=== PATIENT | female | born 1995 | race Caucasian/White ===

== ENCOUNTER 2016-11-24 00:17 | Emergency (ER) | payer BC ==
--- NOTE | 2016-11-24 01:19 | PDOC ---
History of Present Illness - General Stated Complaint: RASH Time Seen by Provider: 11/24/16 01:19 - History of Present Illness Initial Comments: 21 year old previously healthy female presenting with pruritus and erythema of the inner thighs, axilla, flexor arm and wrist surfaces over the past few hours. She noticed a pruritic and erythematous rash on her inner thighs after removing her clothes prior to a shower. After the shower she noticed that the rash was spreading further distal down her legs and lazo to appear on her wrists and flexor surface of her arms bilaterally. She denies any respiratory symptoms. She denies known allergies, insect bite/ exposure, plant exposure, profuse sweating, hygeine issues, new detergent, new clothing, chemical exposure , or animal contact. 11/24/16 01:58 Past History - Past Medical History Allergies/Adverse Reactions: Allergies Allergy/AdvReac Type Severity Reaction Status Date / Time No Known Allergies Allergy Verified 11/24/16 01:25 Home Medications: Ambulatory Orders No Home Medications 0 dose .ROUTE UTDICT 08/03/13 Hydrocortisone 1% Cream [Hytone 1% Cream -] 1 applic TP DAILY PRN #1 tube - Reproductive History Cervical CA: No Dysfunctional Uterine Bleeding: No Ectopic : No Endometrial CA: No Polycystic Ovaries: No Therapeutic (s) & number: No Tubal Ligation: No - Immunization History Immunization Up to Date: Yes - Suicide/Smoking/Psychosocial Hx Smoking History: Never smoked Hx Alcohol Use: No Drug/Substance Use Hx: No Substance Use Type: None Review of Systems - Review of Systems Constitutional: No: Chills, Fever, Loss of Appetite HEENTM: No: Blurred Vision, Tearing Respiratory: No: Cough, Shortness of Breath, Stridor, Wheezing Cardiac (ROS): No: Chest Pain ABD/GI: No: Diarrhea, Nausea, Vomiting Integumentary: Yes: Change in Color, Erythema, Lesions, Pruritus, Rash. No: Bruising Neurological: No: Headache, Numbness, Paresthesia *Physical Exam - Physical Exam General Appearance: Yes: Nourished, Appropriately Dressed. No: Apparent Distress HEENT: positive: EOMI, YASMIN, Normal ENT Inspection, Normal Voice Neck: positive: Trachea midline, Normal Thyroid, Supple. negative: Tender, Rigid Respiratory/Chest: positive: Lungs Clear, Normal Breath Sounds. negative: Chest Tender, Respiratory Distress Cardiovascular: positive: Regular Rhythm, Regular Rate, S1, S2. negative: Edema Gastrointestinal/Abdominal: positive: Normal Bowel Sounds, Flat, Soft. negative : Tender Musculoskeletal: positive: Normal Inspection Extremity: positive: Normal Range of Motion. negative: Normal Inspection ( Confluent erythematous macular rash from crease of thigh medially to the mif thigh bilaterally. Similar rash on wrists and flexor surfaces of her forearm.) Integumentary: positive: Dry, Warm, Erythema, Rash, Swelling (Per above). negative: Normal Color Neurologic: positive: Fully Oriented, Alert, Normal Mood/Affect, Motor Strength 5/5 Medical Decision Making - Medical Decision Making 21 year old female with rash concerning for contact dermatitis. Advised patient on care for rash. Symptoms relieved after 25 PO Benadryl and topical hydrocortisone. Will send home with instructions for Benadryl use and prescription for topical hydrocortisone. 11/24/16 02:07 *DC/Admit/Observation/Transfer Diagnosis at time of Disposition: Contact dermatitis - Discharge Dispostion Disposition: HOME Condition at time of disposition: Improved Admit: No - Prescriptions Prescriptions: Hydrocortisone 1% Cream [Hytone 1% Cream -] 1 applic TP DAILY PRN #1 tube PRN Reason: Itching
[2016-11-24] MEDS ORDERED: diphenhydrAMINE HCL 25 MG CAPSULE (FP) PO ONE ×2 (01:39→01:45)
[2016-11-24] MEDS ORDERED: HYDROCORTISONE 1% TOPICAL OINT 30 GM TUBE TP ONE (01:41)
[2016-11-24 01:49] VITALS: BP 98/58; PULSE 82; TEMP 97.8; BMI 23.7
--- NOTE | 2016-11-24 01:54 | PDOC ---
Attending Attestation - Resident Resident Name: Toñito Christine - ED Attending Attestation I have performed the following: I have examined & evaluated the patient, The case was reviewed & discussed with the resident, I agree w/resident's findings & plan, Exceptions are as noted - HPI HPI: 11/24/16 01:49 Rash to the inner thighs and axillary region after taking her uniform today. - Physicial Exam PE: 11/24/16 01:54 *Physical Exam General Appearance: Yes: Appropriately Dressed. No: Apparent Distress, Intoxicated HEENT: positive: EOMI, YASMIN, Normal ENT Inspection, Normal Voice, TMs Normal, Pharynx Normal. negative: Pale Conjunctivae, Photophobia, Scleral Icterus (R), Scleral Icterus (L) Neck: positive: Trachea midline, Normal Thyroid, Supple. negative: Tender, Rigid, Carotid bruit, Stridor, Lymphadenopathy (R), Lymphadenopathy (L), Thyromegaly Respiratory/Chest: positive: Lungs Clear, Normal Breath Sounds. negative: Chest Tender, Respiratory Distress, Accessory Muscle Use, Labored Respiration, RES, Crackles, Rales, Rhonchi, Stridor, Wheezing, Dullness Cardiovascular: positive: Regular Rhythm, Regular Rate, S1, S2. negative: Edema , JVD, Murmur, Bradycardia, Tachycardia Vascular Pulses: Dorsalis-Pedis (R): 2+, Doralis-Pedis (L): 2+ Gastrointestinal/Abdominal: positive: Normal Bowel Sounds, Flat, Soft. negative : Tender, Organomegaly, Pulsatile Mass, Increased Bowel Sounds, Decreased BS, Distended, Guarding, Rebound, Hernia, Hepatomegaly, Spleenomegaly Lymphatic: negative: Adenopathy, Tenderness Musculoskeletal: positive: Normal Inspection. negative: CVA Tenderness, Decreased Range of Motion Extremity: positive: Normal Capillary Refill, Normal Inspection, Normal Range of Motion, Pelvis Stable. negative: Tender, Pedal Edema, Swelling, Erythema Integumentary: positive: Normal Color, Dry, Warm. 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 negative: EOM Palsy, Facial Droop, Sensory Deficit - Medical Decision Making 11/24/16 19:31 Pt treated and released
== END 2016-11-24 02:27 | disposition home or self-care (01) ==
LOC: JER 00:17
DX: L25.9 Unspecified contact dermatitis, unspecified cause (principal)
CPT/HCPCS: 99281-25

== ENCOUNTER 2017-04-01 22:31 | Emergency (ER) | payer BC ==
[2017-04-01 22:50] VITALS: BP 124/61; PULSE 115; TEMP 100.5; BMI 23.7
--- NOTE | 2017-04-02 00:57 | PDOC ---
History of Present Illness - General Chief Complaint: Cold Symptoms Stated Complaint: COLD SYMPTOMS Time Seen by Provider: 04/02/17 00:16 History Source: Patient Exam Limitations: No Limitations - History of Present Illness Initial Comments: 04/02/17 01:02 21-year-old female with no medical history presents to the emergency department complaining of subjective fever, chills, general malaise for 3 days with a nonproductive cough. Patient denies headache, dizziness, lightheadedness, facial pain, rhinorrhea, nasal congestion, sore throat, earaches, neck stiffness /pain, chest pain, shortness of breath, back pains, abdominal pains, flank pains , urinary symptoms. Timing/Duration: reports: other (x3d) Associated Symptoms: reports: cough, fever/chills Past History - Past Medical History Allergies/Adverse Reactions: Allergies Allergy/AdvReac Type Severity Reaction Status Date / Time No Known Allergies Allergy Verified 04/01/17 22:47 Home Medications: Ambulatory Orders No Home Medications 0 dose .ROUTE UTDICT 08/03/13 - Reproductive History Cervical CA: No Dysfunctional Uterine Bleeding: No Ectopic : No Endometrial CA: No Polycystic Ovaries: No Therapeutic (s) & number: No Tubal Ligation: No - Immunization History Immunization Up to Date: Yes - Suicide/Smoking/Psychosocial Hx Smoking History: Never smoked Hx Alcohol Use: No Drug/Substance Use Hx: No Substance Use Type: None Review of Systems - Review of Systems Able to Perform ROS?: Yes Comments:: 04/02/17 01:00 CONSTITUTIONAL: +subjective fever/chills Absent: diaphoresis, generalized weakness, malaise, loss of appetite HEENT: Absent: rhinorrhea, nasal congestion, throat pain, throat swelling, difficulty swallowing, mouth swelling, ear pain, eye pain, visual Changes CARDIOVASCULAR: Absent: chest pain, loss of consciousness, palpitations, irregular heart rate, peripheral edema RESPIRATORY: +cough/non productive Absent: shortness of breath, dyspnea with exertion, orthopnea, wheezing, stridor, hemoptysis GASTROINTESTINAL: Absent: abdominal pain, abdominal distension, nausea, vomiting, diarrhea, constipation, melena, hematochezia GENITOURINARY: Absent: dysuria, frequency, urgency, hesitancy, hematuria, flank pain, genital pain MUSCULOSKELETAL: Absent: myalgia, arthralgia, joint swelling SKIN: Absent: rash, itching, pallor HEMATOLOGIC/IMMUNOLOGIC: Absent: easy bleeding, easy bruising, lymphadenopathy, frequent infections ENDOCRINE: Absent: unexplained weight gain, unexplained weight loss, heat intolerance, cold intolerance NEUROLOGIC: Absent: headache, focal weakness or paresthesias, dizziness, unsteady gait, seizure, mental status changes, bladder or bowel incontinence PSYCHIATRIC: Absent: anxiety, depression, suicidal or homicidal ideation, hallucinations. Is the patient limited Serbian proficient: No *Physical Exam - Vital Signs Last Vital Signs Temp Pulse Resp BP Pulse Ox 100.5 F H 115 H 22 124/61 99 04/01/17 22:47 04/01/17 22:47 04/01/17 22:47 04/01/17 22:47 04/01/17 22:47 - Physical Exam Comments: 04/02/17 01:00 GENERAL: Well developed, well nourished. Awake and alert. No acute distress. HEENT: Normocephalic, atraumatic. PERRLA, EOMI. No conjunctival pallor. Sclera are non- icteric. Moist mucous membranes. Oropharynx is clear. NECK: Supple. Full ROM. No JVD. Carotid pulses 2+ and symmetric, without bruits. No thyromegaly. No lymphadenopathy. CARDIOVASCULAR: Regular rate and rhythm. No murmurs, rubs, or gallops. Distal pulses are 2+ and symmetric. PULMONARY: No evidence of respiratory distress. Lungs clear to auscultation bilaterally. No wheezing, rales or rhonchi. ABDOMINAL: Soft. Non-tender. Non-distended. No rebound or guarding. No organomegaly. Normoactive bowel sounds. MUSCULOSKELETAL Normal range of motion at all joints. No bony deformities or tenderness. No CVA tenderness. EXTREMITIES: No cyanosis. No clubbing. No edema. No calf tenderness. SKIN: Warm and dry. Normal capillary refill. No rashes. No jaundice. *DC/Admit/Observation/Transfer Diagnosis at time of Disposition: Influenza A (H1N1) - Discharge Dispostion Condition at time of disposition: Stable Admit: No - Referrals - Patient Instructions Printed Discharge Instructions: DI for H1N1 Influenza -- Adult Additional Instructions: Increase fluids Take tylenol alternating with motrin as needed for fever Follow up with your physician in 3 days You've had your symptoms for 3 days which is pass the allotted time for tamiflu to treat for your influenza. Return to the Er for severe/persistent/worsening symptoms - Post Discharge Activity Forms/Work/School Notes: Back to Work, Back to School
== END 2017-04-02 04:25 | disposition home or self-care (01) ==
LOC: JER 22:31
DX: J09.X2 Influenza due to identified novel influenza A virus with other respiratory manifestations (principal)
CPT/HCPCS: 71046-TC-FY; 84703; 87804; 99281-25

== ENCOUNTER 2017-08-12 21:27 | Emergency (ER) | payer BC ==
[2017-08-12 21:46] VITALS: BP 115/67; PULSE 83; TEMP 97.9; BMI 23.2
[2017-08-12 22:01] LABS: URINE APPEARANCE CLOUDY; URINE BILIRUBIN NEGATIVE (<2.0 mg/dL); URINE COLOR DKYELLOW; URINE GLUCOSE (UA) NEGATIVE (NEGATIVE); URINE KETONE 2+ (NEGATIVE); URINE LEUK ESTERASE NEGATIVE (NEGATIVE); URINE NITRITE NEGATIVE (NEGATIVE); URINE UROBILINOGEN 4.0 E.U/dl mg/dL (0.2-1.0)
--- NOTE | 2017-08-12 22:08 | PDOC ---
History of Present Illness - General Chief Complaint: ,Possible Stated Complaint: TEST Time Seen by Provider: 08/12/17 21:48 History Source: Patient - History of Present Illness Timing/Duration: other Associated Symptoms: denies: nausea/vomiting Past History - Past Medical History Allergies/Adverse Reactions: Allergies Allergy/AdvReac Type Severity Reaction Status Date / Time No Known Allergies Allergy Verified 08/12/17 21:44 Home Medications: Ambulatory Orders No Home Medications 0 dose .ROUTE UTDICT 08/03/13 COPD: No Other medical history: Pt denies - Reproductive History Cervical CA: No Dysfunctional Uterine Bleeding: No Ectopic : No Endometrial CA: No Polycystic Ovaries: No Therapeutic (s) & number: No Tubal Ligation: No - Immunization History Immunization Up to Date: Yes - Suicide/Smoking/Psychosocial Hx Smoking History: Never smoked Have you smoked in the past 12 months: No Information on smoking cessation initiated: No Hx Alcohol Use: No Drug/Substance Use Hx: No Substance Use Type: None Review of Systems - Review of Systems Constitutional: No: Fever ABD/GI: No: Nausea, Vomiting, Abdominal cramping : No: Dysuria, Discharge *Physical Exam - Vital Signs Last Vital Signs Temp Pulse Resp BP Pulse Ox 97.9 F 83 20 115/67 99 08/12/17 21:44 08/12/17 21:44 08/12/17 21:44 08/12/17 21:44 08/12/17 21:44 - Physical Exam General Appearance: Yes: Appropriately Dressed. No: Apparent Distress HEENT: positive: Normal Voice Neck: positive: Supple Respiratory/Chest: negative: Respiratory Distress Gastrointestinal/Abdominal: positive: Soft. negative: Tender Integumentary: positive: Dry, Warm Neurologic: positive: Fully Oriented, Alert, Normal Mood/Affect Medical Decision Making - Medical Decision Making 08/12/17 22:00 22 yo F, no sig hx, here for preg test. LMP was 07/14 "in the middle of the month ". States she should have gotten menses by now though aware that technically we are in the middle of current month. States she took home preg test tonight that was + and here for confirmation. Some increased hunger and b/l breast pain now per pt. No abd pain, vag bleed, dysuria, n/v. Preg test negative. No further intervention needed. 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
[2017-08-12 22:18] LABS: URINE PROTEIN 2+ (NEGATIVE)
[2017-08-12 22:36] LABS: HCG,QUALITATIVE URINE NEGATIVE
[2017-08-12 22:37] LABS: EPI CELLS MODERATE /HPF (FEW); URINE BACTERIA FEW /hpf (NONE SEEN); URINE MUCUS MANY
[2017-08-12 22:38] LABS: URINE HYALINE CAST 2 /lpf
== END 2017-08-12 22:45 | disposition home or self-care (01) ==
LOC: JERFT 21:27
DX: Z32.02 Encounter for pregnancy test, result negative (principal)
CPT/HCPCS: 81003; 81015; 84703; 99281-25

== ENCOUNTER 2017-11-19 04:04 | Emergency (ER) | payer BC ==
--- NOTE | 2017-11-19 04:14 | PDOC ---
History of Present Illness - General Stated Complaint: LACERATION TO FINGER Time Seen by Provider: 11/19/17 04:14 Past History - Past Medical History Allergies/Adverse Reactions: Allergies Allergy/AdvReac Type Severity Reaction Status Date / Time No Known Allergies Allergy Verified 08/12/17 21:44 Home Medications: Ambulatory Orders No Home Medications 0 dose .ROUTE UTDICT 08/03/13 COPD: No - Reproductive History Cervical CA: No Dysfunctional Uterine Bleeding: No Ectopic : No Endometrial CA: No Polycystic Ovaries: No Therapeutic (s) & number: No Tubal Ligation: No - Immunization History Immunization Up to Date: Yes - Suicide/Smoking/Psychosocial Hx Smoking History: Never smoked Have you smoked in the past 12 months: No Hx Alcohol Use: No Drug/Substance Use Hx: No Substance Use Type: None *DC/Admit/Observation/Transfer - Referrals Referrals: Carol Bañuelos MD [Primary Care Provider] - - Patient Instructions - Post Discharge Activity
--- NOTE | 2017-11-19 04:18 | PDOC ---
History of Present Illness - General Stated Complaint: LACERATION TO FINGER Time Seen by Provider: 11/19/17 04:14 History Source: Patient Exam Limitations: No Limitations - History of Present Illness Initial Comments: 11/19/17 04:18 Best Contact: PCP:n/a Pmhx:0 Pshx:0 Allergies: NKDA FH:0 Social Hx: Cigarettes/ 0 Alcohol/ 0 Drugs/0 LMP:oct 31, 2017 22-year-old female whose right hand dominant presents to the emergency department complaining of laceration to the left second finger pad. Patient states she was attempting to make an extra hole on her shoes, her hand slipped and lacerated her finger. Patient denies extremity numbness or tingling sensation. Bleeding controlled with direct pressure prior to her arrival to the ER. Tetanus within 5 years. Procedure: Left second finger pad Betadine prep 1% lidocaine/1.5 mL digital block to the base of the volar left second phalanx ReBetadine prep Copious normal saline irrigation Negative foreign body noted Wound explored (3) 5-0 nylon simple interrupted Bacitracin Band-Aid Past History - Past Medical History Allergies/Adverse Reactions: Allergies Allergy/AdvReac Type Severity Reaction Status Date / Time No Known Allergies Allergy Verified 11/19/17 04:17 Home Medications: Ambulatory Orders No Home Medications 0 dose .ROUTE UTDICT 08/03/13 COPD: No - Reproductive History Cervical CA: No Dysfunctional Uterine Bleeding: No Ectopic : No Endometrial CA: No Polycystic Ovaries: No Therapeutic (s) & number: No Tubal Ligation: No - Immunization History Immunization Up to Date: Yes - Suicide/Smoking/Psychosocial Hx Smoking History: Never smoked Have you smoked in the past 12 months: No Hx Alcohol Use: No Drug/Substance Use Hx: No Substance Use Type: None Review of Systems - Review of Systems Able to Perform ROS?: Yes Comments:: 11/19/17 04:23 MUSCULOSKELETAL: Absent: myalgia, arthralgia, joint swelling SKIN: 2cm oblique lac to left 2nd finger pad Absent: rash, itching, pallor HEMATOLOGIC/IMMUNOLOGIC: Absent: easy bleeding, easy bruising, lymphadenopathy, frequent infections Is the patient limited Welsh proficient: No *Physical Exam - Physical Exam Comments: 11/19/17 04:24 MUSCULOSKELETAL Normal range of motion at all joints. No bony deformities or tenderness. No CVA tenderness. EXTREMITIES: No cyanosis. No clubbing. No edema. No calf tenderness. SKIN: Left 2nd cm oblique lac left 2nd digit: F.R.O.M. neg active bleeding Cap refill <2sec Warm and dry. Normal capillary refill. No rashes. No jaundice. 11/19/17 04:26 *DC/Admit/Observation/Transfer Diagnosis at time of Disposition: Finger laceration Qualifiers: Encounter type: initial encounter Finger: index finger Damage to nail status: without damage Foreign body presence: without foreign body Laterality: left Qualified Code(s): S61.211A - Laceration without foreign body of left index finger without damage to nail, initial encounter - Discharge Dispostion Condition at time of disposition: Stable Decision to Admit order: No - Referrals Referrals: Carol Bañuelos MD [Primary Care Provider] - - Patient Instructions Printed Discharge Instructions: DI for Laceration Repair -- Simple Additional Instructions: Keep the incision clean and dry for 24 hours. After 24 hours, you may allow the soap and water to rinse off your incision. Avoid direct pressure of the water to the incision. Pat the incision dry with a clean clothe. Apply a small amount of bacitracin onto the incision. Cover the incision loosely with a bandaid. Take tylenol/motrin as needed for pain. Follow up with your physician or the ER in 48 hours for a wound check. Return to the ER if you notice red streaks, increase redness/swelling/severe pain to the incision. Suture removal in 11-12 days. - Post Discharge Activity
[2017-11-19 04:19] VITALS: BP 113/64; PULSE 82; TEMP 97.6; BMI 23.8
== END 2017-11-19 05:12 | disposition home or self-care (01) ==
LOC: JER 04:04
PROC: 0HQGXZZ Repair Left Hand Skin, External Approach (ICD-10-PCS; principal; 2017-11-19)
DX: S61.211A Laceration without foreign body of left index finger without damage to nail, initial encounter (principal); W27.2XXA Contact with scissors, initial encounter; Y93.89 Activity, other specified; Y92.018 Other place in single-family (private) house as the place of occurrence of the external cause; Y99.8 Other external cause status
CPT/HCPCS: 99283-25

== ENCOUNTER 2021-07-15 16:22 | Emergency (ER) | payer BC, OTHER ==
[2021-07-15 16:33] VITALS: TEMP 97.8; BMI 26.5
[2021-07-15] MEDS ORDERED: ONDANSETRON 4 MG/2 ML VIAL IVPUSH ONE (17:54)
[2021-07-15] MEDS ORDERED: ACETAMINOPHEN 1000 MG/100 ML BAG IVPB ONE (17:54)
[2021-07-15] MEDS ORDERED: SODIUM CHLORIDE 1,000 ML IV STA (17:54)
[2021-07-15] MEDS ORDERED: ONDANSETRON 4 MG/2 ML VIAL ONE (18:20)
[2021-07-15] MEDS ORDERED: ACETAMINOPHEN INJECTION 100 ML IVPB ONE (18:20)
[2021-07-15 18:53] LABS: BASO % 0.4 % (0-2.0); EOS % 0.3 % (0-4.5); HEMATOCRIT 37.6 % (32.4-45.2); HEMOGLOBIN 12.6 GM/dL (10.7-15.3); LYMPH % 24.1 % (8-40); MCH 30.8 pg (25.7-33.7); MCHC 33.5 g/dl (32.0-36.0); MEAN CELL VOLUME 91.9 fl (80-96); MEAN PLT VOLUME 7.6 fl (7.5-11.1); NEUT % 67.2 % (42.8-82.8); PLATELET COUNT 383 10^3/uL (134-434); RBC 4.09 M/mm3 (3.60-5.2); RDW 13.3 % (11.6-15.6); WHITE BLOOD COUNT 8.1 K/mm3 (4.0-10.0)
[2021-07-15 18:58] LABS: EPI CELLS >36 /uL (0-25.1); HYALINE CASTS 9 /uL (0-3.1); PH,URINE 5.5 (5.0-8.0); URINE APPEARANCE CLOUDY; URINE BACTERIA 2121 /uL (0-1359); URINE BILIRUBIN NEGATIVE (NEGATIVE); URINE COLOR YELLOW; URINE GLUCOSE (UA) NEGATIVE (NEGATIVE); URINE KETONE TRACE (NEGATIVE); URINE LEUK ESTERASE 2+ (NEGATIVE); URINE NITRITE NEGATIVE (NEGATIVE); URINE PROTEIN TRACE (NEGATIVE); URINE WBC 169 /uL (0-25.8)
[2021-07-15 19:18] LABS: BLOOD UREA NITROGEN 16.7 mg/dL (7-18); CALCIUM 9.2 mg/dL (8.5-10.1)
[2021-07-15 19:19] LABS: ALBUMIN 3.6 g/dl (3.4-5.0)
[2021-07-15 19:21] LABS: CREATININE 0.7 mg/dL (0.55-1.3)
[2021-07-15 19:23] LABS: BILIRUBIN,TOTAL 0.3 mg/dL (0.2-1); TOT PROT 7.4 g/dl (6.4-8.2)
[2021-07-15 19:31] LABS: URINE RBC 71.9 /uL (0-23.9)
[2021-07-15 21:38] VITALS: BP 122/70; PULSE 86
== END 2021-07-15 21:38 | disposition home or self-care (01) ==
LOC: JER 16:22
PROC: 3E033GC Introduction of Other Therapeutic Substance into Peripheral Vein, Percutaneous Approach (ICD-10-PCS; principal; 2021-07-15)
DX: N30.90 Cystitis, unspecified without hematuria (principal)
CPT/HCPCS: 36415; 74176-TC; 80053; 81003; 83690; 84703; 85025; 87077; 87086; 99285-25

== ENCOUNTER 2023-09-09 08:43 | Emergency (ER) | payer OTHER ==
[2023-09-09 08:51] VITALS: BP 108/72; PULSE 83; RESP 18; TEMP 98.1; BMI 30.4
[2023-09-09] MEDS ORDERED: ACETAMINOPHEN INJECTION 100 ML IVPB ONE (09:31)
[2023-09-09] MEDS: ACETAMINOPHEN 1000 MG/100 ML BAG IVPB ONE (09:45)
[2023-09-09 10:01] LABS: BASO % 0.3 % (0-2.0); EOS % 0.6 % (0-4.5); HEMATOCRIT 39.2 % (32.4-45.2); HEMOGLOBIN 13.2 GM/dL (10.7-15.3); LYMPH % 24.9 % (8-40); MCH 30.8 pg (25.7-33.7); MCHC 33.7 g/dl (32.0-36.0); MEAN CELL VOLUME 91.3 fl (80-96); MONO % 9.6 % (3.8-10.2); NEUT % 64.6 % (42.8-82.8); PLATELET COUNT 347 10^3/uL (134-434); RDW 13.8 % (11.6-15.6); WHITE BLOOD COUNT 6.3 K/mm3 (4.0-10.0)
[2023-09-09 10:19] LABS: POTASSIUM 4.3 mmol/L (3.5-5.1)
[2023-09-09 10:21] LABS: CALCIUM 8.9 mg/dL (8.5-10.1)
[2023-09-09 10:22] LABS: ALBUMIN 3.7 g/dl (3.4-5.0); BLOOD UREA NITROGEN 11.6 mg/dL (7-18)
[2023-09-09 10:25] LABS: CREATININE 0.6 mg/dL (0.55-1.3)
[2023-09-09 10:26] LABS: BILIRUBIN,TOTAL 0.5 mg/dL (0.2-1); TOT PROT 7.6 g/dl (6.4-8.2)
[2023-09-09] MEDS ORDERED: KETOROLAC TROMETHAMINE 15 MG/ML VIAL ONE (11:11)
[2023-09-09 11:17] LABS: HCG,QUALITATIVE URINE Negative
[2023-09-09] MEDS: KETOROLAC TROMETHAMINE 15 MG/ML VIAL IM ONE (11:19)
[2023-09-09 11:25] LABS: EPI CELLS >36 /uL (0-25.1); HYALINE CASTS 1 /uL (0-3.1); URINE APPEARANCE CLEAR; URINE BACTERIA 1015 /uL (0-1359); URINE BILIRUBIN NEGATIVE (NEGATIVE); URINE COLOR YELLOW; URINE GLUCOSE (UA) NEGATIVE (NEGATIVE); URINE KETONE NEGATIVE (NEGATIVE); URINE LEUK ESTERASE NEGATIVE (NEGATIVE); URINE NITRITE NEGATIVE (NEGATIVE); URINE PROTEIN NEGATIVE (NEGATIVE); URINE UROBILINOGEN 0.2 mg/dL (0.2-1.0); URINE WBC 48 /uL (0-25.8)
[2023-09-09 11:35] LABS: URINE RBC 25.2 /uL (0-23.9)
== END 2023-09-09 11:56 | disposition home or self-care (01) ==
LOC: JER 08:43
PROC: 3E033NZ Introduction of Analgesics, Hypnotics, Sedatives into Peripheral Vein, Percutaneous Approach (ICD-10-PCS; principal; 2023-09-09)
PROC: 3E0133Z Introduction of Anti-inflammatory into Subcutaneous Tissue, Percutaneous Approach (ICD-10-PCS; 2023-09-09)
DX: R10.11 Right upper quadrant pain (principal); X50.1XXA Overexertion from prolonged static or awkward postures, initial encounter
CPT/HCPCS: 36415; 76705-TC; 80053; 81003; 83690; 84703; 85025; 87086; 99284-25; J0131